=== PATIENT | male | born 1940 | race Caucasian/White ===

== ENCOUNTER 2016-09-18 10:10 | Observation (INO) | payer MEDICARE, OTHER ==
[~2016-09-18] VITALS: Ht 180.3 cm; Wt 94.9 kg
[~2016-09-18 10:10] MED LIST: AMLO10TA2 PO; ASPI-496 PO; CALC500T47 PO; CALC625T23 PO; CEFD300C37 PO; CLIN300C93 PO; CYCL-259 PO; DOCU-30 PO; DULO30CA2 PO; DULO60CA7 PO; FENT1PAT75 TD; FERR325T20 PO; FLUC200T4 PO; LEVO500T8 PO; LISI-167 PO; MULT-6 PO; OMEP40CA6 PO; OSEL75CA PO; OXYC-229 PO; OXYC-302 PO; OXYC20TA59 PO; PREG150C PO; SOLI10TA PO; VALA500T PO
[2016-09-18 10:46] VITALS: BP 128/74
[2016-09-18] MEDS ORDERED: ACETAMINOPHEN 325 MG TABLET PO PRN (11:00)
[2016-09-18] MEDS ORDERED: BISACODYL 10 MG SUPP PR PRN (11:00)
[2016-09-18] MEDS ORDERED: ASPIRIN 325 MG TABLET EC PO ONE (11:00)
[2016-09-18] MEDS ORDERED: ZOLPIDEM 5MG TABLET PO PRN (11:00)
[2016-09-18] MEDS ORDERED: ONDANSETRON 2MG/ML, 2ML IVPush PRN (11:00)
[2016-09-18] MEDS ORDERED: BISACODYL 5 MG EC TABLET PO PRN (11:00)
[2016-09-18] MEDS ORDERED: LISI-170 PO (11:13)
[2016-09-18] MEDS ORDERED: OSEL75CA PO (11:13)
[2016-09-18] MEDS ORDERED: CHOL100018 PO (11:13)
[2016-09-18] MEDS ORDERED: ATOR40TA78 PO (11:13)
[2016-09-18 11:57] LABS: BLOOD UREA NITROGEN 38 mg/dL (7-18)
[2016-09-18] MEDS ORDERED: HEPARIN 1,000 UNITS/ML, 10ML ONE (12:13)
[2016-09-18] MEDS ORDERED: MIDAZOLAM 1 MG/ML, 5ML ONE (12:13)
[2016-09-18] MEDS ORDERED: NITROGLYCERIN 5 MG/ML, 10ML ONE (12:13)
[2016-09-18] MEDS ORDERED: FENTANYL PF 100 MCG/2ML ONE (12:13)
[2016-09-18] MEDS ORDERED: PRASUGREL 10 MG TABLET ONE (12:13)
[2016-09-18] MEDS ORDERED: LIDOCAINE 2%, 20ML ONE (12:13)
[2016-09-18] MEDS ORDERED: BIVALIRUDIN 250 MG ONE ×2 (12:13→13:51)
[2016-09-18] MEDS ORDERED: VERAPAMIL 2.5 MG/ML, 2ML ONE (12:13)
[2016-09-18] MEDS ORDERED: SODIUM CHLORIDE 0.9% 1,000 ML IV SCH (13:48)
[2016-09-18] MEDS ORDERED: BIVALIRUDIN 500 MG in DEXTROSE 5% 100 ML IV SCH (14:00)
[2016-09-18] MEDS: OMEPRAZOLE 20 MG CAPSULE.DR PO SCH (17:36)
[2016-09-18 19:05] VITALS: BP 127/71
[2016-09-18 20:27] LABS: IS PT STATUS REG ER OR PRE ER? NO
[2016-09-18] MEDS: PREGABALIN 150 MG CAPSULE PO SCH (20:38)
[2016-09-18] MEDS ORDERED: DULOXETINE 30 MG CAPSULE.DR PO SCH (21:00)
[2016-09-18] MEDS ORDERED: ATORVASTATIN 40 MG TABLET PO SCH (21:00)
[2016-09-19 01:15] VITALS: BP 94/59
[2016-09-19 06:00] LABS: BLOOD UREA NITROGEN 33 mg/dL (7-18)
[2016-09-19] MEDS: OMEPRAZOLE 20 MG CAPSULE.DR PO SCH (08:30)
[2016-09-19] MEDS: PREGABALIN 150 MG CAPSULE PO SCH (08:30)
[2016-09-19 08:31] VITALS: BP 126/77
[2016-09-19 08:45] VITALS: BP 114/69
[2016-09-19] MEDS ORDERED: TICA90TA PO (08:46)
[2016-09-19] MEDS ORDERED: CHOLECALCIFEROL 1,000 UNIT TABLET PO SCH (09:00)
[2016-09-19] MEDS ORDERED: AMLODIPINE 5 MG TABLET PO SCH (09:00)
[2016-09-19] MEDS ORDERED: VALACYCLOVIR 500MG TABLET PO SCH (09:00)
[2016-09-19] MEDS ORDERED: TICAGRELOR 90 MG TABLET PO SCH (09:00)
[2016-09-19] MEDS ORDERED: PRASUGREL 10 MG TABLET PO SCH (09:00)
[2016-09-19] MEDS ORDERED: ASPIRIN 81 MG TABLET EC PO SCH (09:00)
[2016-09-19] MEDS ORDERED: LISINOPRIL 20 MG TABLET PO SCH (09:00)
== END 2016-09-19 11:40 | disposition home or self-care (01) ==
LOC: CACL 10:10 → ORIP 13:48 → 5SO 14:03 → DCLOUNGE 09-19 11:14
PROVIDERS: ADMIT Internal Medicine Cardiovascular Disease; ATTEND Internal Medicine Cardiovascular Disease
DX: I25.10 Atherosclerotic heart disease of native coronary artery without angina pectoris (principal); I35.0 Nonrheumatic aortic (valve) stenosis; E78.2 Mixed hyperlipidemia; I10 Essential (primary) hypertension; Z95.5 Presence of coronary angioplasty implant and graft
CPT/HCPCS: 36415; 80048; 82040; 84484; 85014; 85018; 92978; 93005; C1725; C1753; C1769; C1874; C1887; C1894; C9600; G0378; J0583; J2250; J3010; J3490; Q9967; J1644

== ENCOUNTER 2017-05-30 11:01 | Day surgery (SDC) | payer MEDICARE, OTHER ==
[~2017-05-30] VITALS: Ht 177.8 cm; Wt 96.0 kg
[~2017-05-30 11:01] MED LIST changes: +ATOR40TA78 PO; -CALC500T47 PO; +CALC500T51 PO; +CHOL100012 PO; +CLIN300C8 PO; -CLIN300C93 PO; +CLOP75TA52 PO; +DOCU-131 PO; -DOCU-30 PO; +FERR325T18 PO; -FERR325T20 PO; +LISI-170 PO; -OXYC-229 PO; +OXYC-307 PO; -SOLI10TA PO; +SOLI10TA2 PO; +TICA90TA PO; +iron PO
[2017-05-30] MEDS ORDERED: LACTATED RINGERS 1,000 ML IV SCH (11:37)
[2017-05-30 11:43] VITALS: BP 169/81
[2017-05-30 12:26] LABS: ALANINE AMINOTRANSFERASE 25 U/L (12-78); ALBUMIN 3.2 g/dL (3.4-5.0); ANION GAP 6 mmol/L (5-15); CALCIUM 8.4 mg/dL (8.5-10.1); CHLORIDE 112 mmol/L (98-107); CREATININE 1.14 mg/dL (0.7-1.3)
[2017-05-30 12:28] LABS: ALKALINE PHOSPHATASE 83 U/L (45-117); TOTAL PROTEIN 6.8 g/dL (6.4-8.2)
[2017-05-30] MEDS ORDERED: CHLORHEXIDINE MOUTHWASH 15 ML UDC ONE (12:30)
[2017-05-30] MEDS ORDERED: ONDANSETRON 2MG/ML, 2ML ONE (12:55)
[2017-05-30] MEDS ORDERED: DEXAMETHASONE 4 MG/ML, 5ML ONE (12:55)
[2017-05-30] MEDS ORDERED: PROPOFOL 10 MG/ML, 20ML ONE (12:55)
[2017-05-30] MEDS ORDERED: MEPERIDINE/PF 25MG/0.5ML IVPush PRN (13:30)
[2017-05-30] MEDS ORDERED: OXYcodone 5 MG/5 ML ORAL.SOL UDC PO PRN (13:30)
[2017-05-30] MEDS ORDERED: ALBUTEROL SULFATE 2.5 MG/3 ML NPPB PRN (13:30)
[2017-05-30] MEDS ORDERED: MIDAZOLAM 1 MG/ML, 2ML IV PRN (13:30)
[2017-05-30] MEDS ORDERED: ONDANSETRON 2MG/ML, 2ML IVPush PRN (13:30)
[2017-05-30] MEDS ORDERED: hydrALAzine 20 MG/ML, 1ML IV PRN (13:30)
[2017-05-30] MEDS ORDERED: LABETALOL 5MG/ML, 20ML IV PRN (13:30)
[2017-05-30] MEDS ORDERED: PROMETHAZINE 25 MG/ML, 1ML IV PRN (13:30)
[2017-05-30] MEDS ORDERED: FENTANYL PF 100 MCG/2ML IV PRN (13:30)
[2017-05-30] MEDS ORDERED: HYDROmorphone 1 MG/ML, 1ML IV PRN (13:30)
== END 2017-05-30 15:20 | disposition home or self-care (01) ==
LOC: OUT 11:01
PROVIDERS: ATTEND Internal Medicine Gastroenterology
DX: C15.5 Malignant neoplasm of lower third of esophagus (principal); K22.711 Barrett's esophagus with high grade dysplasia; K44.9 Diaphragmatic hernia without obstruction or gangrene; K22.2 Esophageal obstruction; K21.9 Gastro-esophageal reflux disease without esophagitis; E03.9 Hypothyroidism, unspecified; I25.10 Atherosclerotic heart disease of native coronary artery without angina pectoris; Z95.5 Presence of coronary angioplasty implant and graft; I10 Essential (primary) hypertension; Z88.8 Allergy status to other drugs, medicaments and biological substances
CPT/HCPCS: 36415; 43248; 43259; 80053; J1100; J2405; J2704; J7120

== ENCOUNTER → 2017-12-24 | Outpatient (CLI) | payer MEDICARE, OTHER ==
[~2017-12-24] MED LIST changes: +CATHFLO-ALTEPLASE 2 MG/2 ML ONE
== END | disposition home or self-care (01) ==
LOC: RAD 12:08
PROVIDERS: ATTEND Nurse Practitioner Family
DX: T82.868A Thrombosis due to vascular prosthetic devices, implants and grafts, initial encounter (principal); C15.9 Malignant neoplasm of esophagus, unspecified; I10 Essential (primary) hypertension; E11.9 Type 2 diabetes mellitus without complications; Y83.8 Other surgical procedures as the cause of abnormal reaction of the patient, or of later complication, without mention of misadventure at the time of the procedure; Y92.89 Other specified places as the place of occurrence of the external cause; Z79.82 Long term (current) use of aspirin; Z79.899 Other long term (current) drug therapy; Z85.46 Personal history of malignant neoplasm of prostate; Z87.891 Personal history of nicotine dependence; Z98.890 Other specified postprocedural states
CPT/HCPCS: 36593; 36598; J1642; J2997; 76000; 77001